=== PATIENT | female | born 1955 | race Hispanic/Latino ===

== ENCOUNTER → 2024-09-11 | Outpatient (REF) | payer MEDICARE, OTHER ==
[~2024-09-11] MED LIST: D3-5000125 MCG; LEVOFLOXACIN750 MG PO; MULTI-VITAMIN1 EACH PO; VITAMIN C1000 MG PO
== END ==
LOC: RAD 13:31 → EDSTATUS 09-20 07:00
PROVIDERS: ATTEND Internal Medicine Gastroenterology
DX: Z01.818 Encounter for other preprocedural examination (principal); K92.1 Melena; K59.01 Slow transit constipation; Z68.31 Body mass index [BMI] 31.0-31.9, adult; Z71.3 Dietary counseling and surveillance; Z78.9 Other specified health status
CPT/HCPCS: 93005

== ENCOUNTER → 2024-10-25 | Day surgery (SDC) | payer MEDICARE, OTHER ==
[~2024-10-25] MED LIST changes: +PROPOFOL IV EMULSION 10 MG/ML 20 ML VIAL ONE
[2024-10-25] MEDS: LACTATED RINGER'S 1,000 ML ONE (06:26)
[2024-10-25 06:42] LABS: BASOPHILS % 1.0 % (0.0-1.0); EOSINOPHILS % 3.5 % (0.0-6.0); LYMPHOCYTES % 28.3 % (18.0-39.1); MONOCYTES % 6.2 % (4.4-11.3); NEUTROPHILS % 60.7 % (38.7-80.0); RED CELL DISTRIBUTION WIDTH 13.6 % (11.7-14.4)
[2024-10-25 07:11] VITALS: TEMP 97.8
[2024-10-25 07:25] VITALS: BP 137/74; PULSE 69; RESP 16; O2SAT 98
[2024-10-25 09:20] LABS: BASOPHILS % (MANUAL) 1 % (0-1.5); EOSINOPHILS % (MANUAL) 4 % (0-7); LYMPHOCYTES % (MANUAL) 22 % (19-48); MONOCYTES % (MANUAL) 4 % (3.4-9.0); NEUTROPHILS % (MANUAL) 62 % (40-74); PLATELET ESTIMATE ADEQUATE; PLATELET MORPHOLOGY COMMENT NORMAL; RBC MORPHOLOGY COMMENT NORMAL; REACTIVE LYMPHOCYTES 7
== END | disposition home or self-care (01) ==
LOC: OR 05:41
PROVIDERS: ATTEND Internal Medicine Gastroenterology
DX: K92.1 Melena (principal); D12.2 Benign neoplasm of ascending colon; K63.5 Polyp of colon; K64.1 Second degree hemorrhoids; K59.01 Slow transit constipation; Z71.3 Dietary counseling and surveillance; Z68.31 Body mass index [BMI] 31.0-31.9, adult; K76.0 Fatty (change of) liver, not elsewhere classified; M19.91 Primary osteoarthritis, unspecified site
CPT/HCPCS: 36415; 45380; 45385; 85025; 88305; J2704; J7121; 45378